=== PATIENT | male | born 1960 | race Caucasian/White ===

== ENCOUNTER 2017-04-10 20:13 | Observation (INO) ==
[2017-04-10] MEDS ORDERED: NITROGLYCERIN 2% OINT 1 INCH/GM PACK TOP STA (20:31)
[2017-04-10] MEDS ORDERED: METOPROLOL TARTRATE 25 MG TABLET PO STA (20:31)
[2017-04-10] MEDS ORDERED: MORPHINE 2 MG/1 ML SYRINGE IV STA (20:31)
[2017-04-10] MEDS ORDERED: ALUM/MAG/SIMETH/LIDO VISC 1:1 30 ML BOTTLE PO STA (20:31)
[2017-04-10] MEDS ORDERED: ASPIRIN 325 MG TABLET PO STA (20:31)
[2017-04-10] MEDS ORDERED: ONDANSETRON 4 MG/2 ML VIAL IV STA (20:31)
[2017-04-10] MEDS ORDERED: SODIUM CHLORIDE 0.9% 500 ML IV STA (20:31)
--- NOTE | 2017-04-10 20:33 | Emergency Department Note ---
Sara Alas Emily, am scribing for, and in the presence of, Stephan Juarez MD 20: 28. Larry Alas Charles R, MD, personally performed the services described in this documentation, ascribed by Kendra Ruiz in my presence, and it is both accurate and complete . Arrival - Arrival Chief Complaint: Chest Pain Stated Complaint: C/O CHEST PAIN WITH SOB WITH ONSET OVER WEEK AGO Mode of Arrival: Stretcher Limitations: No Limitations Source: Patient, EMS - History of Present Illness HPI Narrative: Pt is a 57 y/o male who came to ED by EMS for c/o chest pain and SOB that has been ongoing in waves for a week now. Pt is originally from [place] and was driving through last week when he stopped at [place], [place], for the same sxs. Pt states he is currently driving back through on his way back to [place] to go home with chest pains. 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 Pt is a smoker daily and occasional marijuana. Pt has sunburn on bilateral arms from biceps to fingertips. Onset (ago): week(s) Consistency: intermittent Severity: moderate Severity scale (1-10): 5 Quality: aching Allergies/Adverse Reactions: Allergies Allergy/AdvReac Type Severity Reaction Status Date / Time codeine Allergy Unknown/Unable Verified 04/10/17 20:14 to obtain tramadol [From Ultram] Allergy Unknown/Unable Verified 04/10/17 20:14 to obtain Review of System - Review of System 12 point system: reviewed and no additional remarkable complaints except as stated - Review of System Constitutional: Absent: chills, fever Respiratory: Present: respiratory distress. Absent: cough Cardiovascular: Present: chest pain (intermittent) Gastrointestinal: Absent: abdominal pain, nausea, vomiting Genitourinary male: Absent: dysuria Musculoskeletal: Absent: back pain, leg pain Skin: Absent: rash Neurological: Absent: headache Medical,Surgical,& Family Hx - Social History Functional capacity: independent ambulation Exam Vital Signs: Vital Signs Temperature 98.2 F 04/10/17 20:14 Pulse Rate 72 04/10/17 20:14 Respiratory Rate 16 04/10/17 20:14 Blood Pressure 102/77 04/10/17 20:14 O2 Sat by Pulse Oximetry 98 04/10/17 20:37 - General General appearance: alert, in distress (secondary due to pain) - Head Head exam: Present: atraumatic, normocephalic - Eye Eye exam: Present: PERRL, EOMI - Neck Neck exam: Present: full ROM. Absent: tenderness - Chest Chest inspection: Present: symmetric chest wall rise, other (ortega on chest shows evidence of previous hospitalization). Absent: rash - Respiratory Respiratory exam: Present: normal lung sounds bilaterally. Absent: respiratory distress - Cardiovascular Cardiovascular exam: Present: tachycardia, normal heart sounds - Abdominal Exam Abdominal exam: Present: soft, other (ortega consistent with evidence of previous hospital stay). Absent: tenderness - Extremities Exam Extremities exam: Present: full ROM, pedal edema (+1). Absent: tenderness - Neurological Exam Neurological exam: Present: alert, oriented X3, CN II-XII intact. Absent: motor sensory deficit - Psychiatric Psychiatric exam: Present: normal affect, normal mood - Skin Skin exam: Present: warm, dry Course - Consultations Consultation #1: Hospitalist will admit patient Time: 22:41 Results - Labs CBC & BMP: 04/10/17 20:32 04/10/17 20:32 Lab Results: I have reviewed the patients labs Labs: Laboratory Tests 04/10/17 20:32 WBC 7.1 RBC 4.24 Hgb 12.5 L Hct 36.4 L MCV 85.8 L Plt Count 251 [place] % (Auto) 13.3 H [place] # (Auto) 0.9 H Laboratory Tests 04/10/17 04/10/17 04/10/17 20:20 20:20 20:32 Sodium 146 H Chloride 112 H Total Protein 6.2 L Urine Color Yellow Urine Appearance Clear Urine pH 6.0 Ur Specific [place] 1.014 Urine Blood Negative Urine Urobilinogen < 2.0 H Urine RBC 1 Urine WBC 1 Calcium Oxalate Crystal Occasional Urine Mucus Occasional U Cannabinoids Screen Positive H Laboratory Tests 04/10/17 20:32 B-Natriuretic Peptide 4 - Diagnostic Findings Procedure: Chest x-ray: report reviewed by me (No acute cardiopulmonary process. ) Disposition Clinical Impression: Chest pain Case discussed with: patient Disposition: Still a Patient Condition: Stable Time of Disposition: 22:41
[2017-04-10] MEDS ORDERED: ASPIRIN 325 MG TABLET ONE (20:34)
[2017-04-10 20:39] LABS: Basophils % 0.3 % (0.0-0.8); Eosinophils # 0.1 10*3/uL (0.0-0.87); Eosinophils % 0.8 % (0.00-10.9); Hematocrit 36.4 VOL% (42.0-52.0); Hemoglobin 12.5 GM/DL (14.0-18.0); Immature Granulocytes % 0.4 %; Immature Granulocytes Absolute 0.03 #; Lymphocytes # 2.1 10*3/uL (1.4-4.0); Lymphocytes % 29.8 % (21.2-54.2); Mean Corpuscular HGB Conc 34.3 GM/DL (32-36); Mean Corpuscular Hemoglobin 30 PG (27-34); Mean Corpuscular Volume 85.8 FL (87-102); Mean Platelet Volume 10.1 FL (9.6-12.0); Monocytes # 0.9 10*3/uL (0.11-0.8); Monocytes % 13.3 % (1.7-12.7); Neutrophils # 3.9 10*3/uL (1.4-7.4); Neutrophils % 55.4 % (38.7-73.9); Platelet Count 251 T/CUMM (130-400); Red Blood Count 4.24 MC/CUMM (3.8-5.5); Red Cell Distribution Width 14.5 % (9.3-17.3); White Blood Count 7.1 T/CUMM (4-12)
[2017-04-10] MEDS ORDERED: NITROGLYCERIN 2% OINT 1 INCH/GM PACK TOP ONE (20:44)
[2017-04-10 20:45] LABS: Apearance,Urine CLEAR (Clear); Bilirubin,Urine Negative (Negative); Blood, Urine Negative (Negative); Calcium Oxalate Crystals,Urine Occasional /HPF (Few); Glucose,Urine (UA) Negative (Negative); Ketones,Urine Negative (Negative); Mucus,Urine Occasional /LPF (Occasional); Nitrite,Urine Negative (Negative); Protein,Urine Negative; RBC,Urine 1 /HPF (0-4); Urine Color Yellow (Yellow); Urine Specific Gravity 1.014 (1.001-1.035); Urine Urobilinogen < 2.0 EU/DL (0.2-1.0); WBC,Urine 1 /HPF (0-6)
[2017-04-10] MEDS ORDERED: METOPROLOL TARTRATE 25 MG TABLET ONE (20:45)
[2017-04-10] MEDS ORDERED: MORPHINE 2 MG/1 ML SYRINGE ONE (20:45)
[2017-04-10] MEDS ORDERED: ONDANSETRON 4 MG/2 ML VIAL ONE (20:45)
[2017-04-10] MEDS ORDERED: ALUM/MAG/SIMETH/LIDO VISC 1:1 30 ML BOTTLE PO ONE (20:46)
[2017-04-10 20:51] LABS: Barbiturates Screen,Urine Negative (Negative); Benzodiazepines Screen,Urine Negative (Negative); Cannabinoid Screen,Urine Positive (Negative); Opiate Screen,Urine Negative (Negative); Phencyclidine Screen,Urine Negative (Negative)
[2017-04-10 20:53] LABS: D-Dimer <= 0.5 MG/L FEU; PT Patient Result 10.7 SECS
[2017-04-10 20:55] LABS: Alanine Aminotransferase 21 U/L (16-61); Albumin 3.5 G/DL (3.4-5.0); Alkaline Phosphatase 86 U/L (45-117); Aspartate Amino Transferase 12 U/L (0-37); Blood Urea Nitrogen 12 MG/DL (7-18); Calcium 8.9 MG/DL (8.5-10.1); Glucose 79 MG/DL (74-106); Osmolality,Calculated 288.6 MOS/KG (273-304); Potassium 3.9 MMOL/L (3.5-5.1); Sodium 146 MMOL/L (136-145); Total Protein 6.2 G/DL (6.4-8.3); Troponin I Only < 0.015 NG/ML (0.00-0.045)
[2017-04-10] MEDS: ASPIRIN CHEW 81 MG TABLET PO STA ×2 (20:59→21:03)
--- NOTE | 2017-04-10 21:09 | XRay Report ---
History: Chest pain Date: 04/10/2017 Study: Chest x-ray PA and lateral Comparison exam: No previous The cardiac silhouette is not enlarged. There is no mediastinal mass. The pulmonary vasculature is not engorged. There are some occasional scattered emphysematous changes. There is no acute pulmonary infiltrate. There is no pleural effusion. There is minimal thoracic spondylosis. There is an old healed midshaft fracture of the left clavicle. Impression: No acute cardiopulmonary process. PROCEDURE INTERPRETED AT [facility] DEPARTMENT OF RADIOLOGY Final Report Signed by: Dr. Jenelle Pedraza
[2017-04-11] MEDS ORDERED: ONDANSETRON 4 MG/2 ML VIAL IV PRN (00:10)
--- NOTE | 2017-04-11 00:26 | Hospitalist History & Physical ---
Assessment and Plan (1) History of coronary artery disease Status: Acute Current Visit: Yes (2) Hypertension Status: Acute Current Visit: Yes (3) Chest pain Status: Acute Assessment and plan: Plan for this patient. We will admit patient to our service. Patient will be placed on telemetry. Will consult cardiology draw serial cardiac enzymes. Continue home meds as appropriate. Current Visit: Yes History of Present Illness Chief complaint: Chest pain History of present illness: Mr. Mackey is a 57 year old male with past medical history of coronary artery disease, hypertension,and Sharp's esophagus who reports symptoms for 1 week. Patient reports that he has been developing this shortness of breath. He also talks about this chest discomfort. He says it feels like a vice in his chest. Radiates to his neck and started radiating down his arm. Has some diaphoresis at times. He reports that he has known coronary artery disease and that he needs some kind of heart surgery can be done in [place]. He is from [place] and is trying to make his way back [place]. I was consulted to admit him through the emergency room Home Medications Medication Instructions Recorded Confirmed Type Amlodipine Besylate 5 mg PO DAILY 04/10/17 04/10/17 History Diltiazem Tab [Cardizem Tab] 60 mg PO DAILY 04/10/17 04/10/17 History FLUoxetine [PROzac] 20 mg PO BID 04/10/17 04/10/17 History Gabapentin Cap/Tab [Neurontin 100 mg PO DAILY 04/10/17 04/10/17 History Cap/Tab] HydrOXYzine PAMOATE CAP [Vistaril 50 mg PO BID 04/10/17 04/10/17 History Cap] Meclizine [Antivert] 25 mg PO DAILY 04/10/17 04/10/17 History Omeprazole 20 mg PO DAILY 04/10/17 04/10/17 History Pantoprazole Tab [Protonix Tab] 40 mg PO DAILY 04/10/17 04/10/17 History Pravastatin [Pravachol] 40 mg PO DAILY 04/10/17 04/10/17 History busPIRone [Buspar] 10 mg PO DIRECTED 04/10/17 04/10/17 History Allergies Allergy/AdvReac Type Severity Reaction Status Date / Time codeine Allergy Unknown/Unable Verified 04/10/17 20:14 to obtain tramadol [From Ultram] Allergy Unknown/Unable Verified 04/10/17 20:14 to obtain Medical,Surgical,& Family Hx - Medical History Cardio: History of: Hypertension, [place] Psychological: History of: Psychiatric Problems (PTSD) Neurology: History of: Cerebrovascular Accident Endocrine: History of: Dyslipidemia Other: History of: Cancer (BRAIN) - Family History Family History: Reports;: Family Diabetes, Family Heart Disease, Family Hypertension - Social History Smoking Status: Current every day smoker Frequency of Alcohol Use: None Type of Drug Use: Marijuana 12 point system: reviewed and no additional remarkable complaints except as stated Exam - Constitutional Vitals: Period Temp Pulse Resp BP Sys/[place]rera Pulse Ox Last 24 Hr 97.8 F-98.2 F 66-72 16-18 102-102/77-77 98-98 - General General appearance: alert, in no distress - Head Head exam: Present: atraumatic, normocephalic - Eye Eye exam: Present: PERRL, EOMI - Neck Neck exam: Present: full ROM. - Chest Chest inspection: Present: symmetric chest wall rise, grossly clear - Respiratory Respiratory exam: Present: normal lung sounds bilaterally - Cardiovascular Cardiovascular exam: Present: Regular rhythm regular rate currently - Abdominal Exam Abdominal exam: Present: soft, positive bowel sounds - Extremities Exam Extremities exam: Present: full ROM, pedal edema (+1) - Neurological Exam Neurological exam: Present: alert, oriented X3, CN II-XII intact. - Psychiatric Psychiatric exam: Present: normal affect, normal mood - Skin Skin exam: Present: warm, dry Results - Labs CBC & BMP: 04/10/17 20:32 04/10/17 20:32
[2017-04-11 01:09] LABS: Risk Ratio 3.06; VLDL CHOLESTEROL 12.2 MG/DL
[2017-04-11] MEDS: ENOXAPARIN 40 MG/0.4 ML SYRINGE SUBCUT SCH ×2 (02:43→21:11)
--- NOTE | 2017-04-11 06:21 | EKG Report ---
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
--- NOTE | 2017-04-11 06:22 | EKG Report ---
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
[2017-04-11] MEDS: NITROGLYCERIN 2% OINT 1 INCH/GM PACK TOP SCH ×3 (06:43→17:47)
[2017-04-11] MEDS: MECLIZINE 25 MG TABLET PO SCH (09:04)
[2017-04-11] MEDS: FLUoxetine 20 MG CAPSULE PO SCH ×2 (09:04→21:12)
[2017-04-11] MEDS: GABAPENTIN 100 MG CAPSULE PO SCH (09:04)
[2017-04-11] MEDS: HydrOXYzine PAMOATE 50 MG CAPSULE PO SCH ×2 (09:04→21:12)
[2017-04-11] MEDS: PRAVASTATIN 40 MG TABLET PO SCH (09:04)
[2017-04-11] MEDS: PANTOPRAZOLE 40 MG TABLET PO SCH (09:04)
[2017-04-11] MEDS: ASPIRIN EC 325 MG TABLET PO SCH (09:04)
[2017-04-11] MEDS: amLODIPine 5 MG TABLET PO SCH (09:06)
[2017-04-11] MEDS: DILTIAZEM 60 MG TABLET PO SCH (09:06)
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
[2017-04-11] MEDS: METOPROLOL TARTRATE 25 MG TABLET PO SCH ×2 (12:28→21:13)
[2017-04-11] MEDS: MORPHINE 2 MG/1 ML SYRINGE IV PRN ×3 (12:56→21:15)
--- NOTE | 2017-04-11 15:00 | Hospitalist Progress Note ---
Assessment and Plan (1) Chest pain Problem details: H/O CAD; acute PR ruled out. Status: Acute Current Visit: Yes (2) Essential (primary) hypertension Status: Acute Current Visit: Yes (3) Dyslipidemia Problem details: Total cholesterol 147, HDL 48, LDL 89, triglycerides 61 drawn this a.m. Status: Acute Current Visit: Yes (4) Tobacco abuse Problem details: counseled and encouraged to D/C tobacco use Status: Acute Current Visit: Yes (5) Polysubstance abuse Status: Acute Current Visit: Yes (6) PTSD (post-traumatic stress disorder) Status: Acute Current Visit: Yes (7) Barretts esophagus Status: Acute Current Visit: Yes (8) Stroke Status: Acute Current Visit: Yes (9) History of stroke Problem details: Two previous strokes without residual motor deficits. Status: Acute Current Visit: Yes (10) Allergy Problem details: allergy to shellfish and iodine (causes rash). Status: Acute Current Visit: Yes Hospitalist: Subjective Interval history: Patient is alert and fully oriented. He communicates well verbally. He reports a long history of complex heart disease. He states that surgical repair has been recommended. He is attempting to maneuver such that his medical insurance covers the expense of such a procedure. Exam - Constitutional Vitals: Period Temp Pulse Resp BP Sys/Cabrera Pulse Ox Last 24 Hr 97.8 F-98.4 F 47-72 16-20 102-122/54-77 98-98 General appearance: normal weight - Head Head exam: Present: normal inspection - Eye Eye exam: Present: EOMI Pupils: Present: ORTIZ - ENT ENT exam: Present: normal exam - Neck Neck exam: Present: normal inspection. Absent: meningismus, tenderness - Respiratory Respiratory exam: Present: clear to auscultation bilaterally. Absent: accessory muscle use, chest wall tenderness, rales, wheezes - Cardiovascular Cardiovascular exam: Present: regular rate and rhythm - GI/Abdominal GI/Abdominal exam: Present: normal bowel sounds, soft. Absent: mass, tenderness , rebound - Extremities Exam Extremities exam: Present: normal inspection, full ROM. Absent: calf tenderness , edema - Back Exam Back exam: Present: normal inspection - Neurological Exam Neurological exam: Present: alert, oriented X3 - Psychiatric Psychiatric exam: Present: normal affect, normal mood - Skin Skin exam: Present: normal color, warm, dry. Absent: rash Results - Labs CBC & BMP: 04/10/17 20:32 04/10/17 20:32 - Diagnostic Findings Procedure: Ultrasound: report reviewed by me, other (Echo - pending)
--- NOTE | 2017-04-11 19:01 | ECHO Report ---
Evangelista Mackey Exam Date: 04/11/2017 13:59 Referring Physician: Technologist: floresita Lyman ARDMS, RVT Age: 57 Ht (in): 68 Wt (lb): 143 Gender: M Exam Location: [facility] Echo Indications: Chest pain, unspecified, Old myocardial Infarction, Essential (primary) hypertension, CAD, Brain cancer, CVA, Dyslipidemia BP: 108 / 54 HR: 49 Rhythm: Sinus Technical Quality: IMPRESSIONS Normal left ventricular cavity size. Normal left ventricular wall thickness. Normal systolic function. Left ventricular ejection fraction is estimated at 60 %. Normal diastolic function. Mildly sclerotic aortic valve, with mild insufficiency, without stenosis. MEASUREMENTS (Male / Female) Normal Values 2D ECHO LV Diastolic Diameter PLAX 4.8 cm 4.2 - 5.9 / 3.9 - 5.3 cm LV Systolic Diameter PLAX 2.6 cm LV Fractional Shortening PLAX 46.0 % IVS Diastolic Thickness 0.7 cm 0.6 - 1.0 / 0.6 - 0.9 cm LVPW Diastolic Thickness 0.8 cm 0.6 - 1.0 / 0.6 - 0.9 cm RV Internal Dim ED PLAX 4.1 cm Aortic Root Diameter 3.1 cm LA Systolic Diameter LX 2.6 cm 3.0 - 4.0 / 2.7 - 3.8 cm DOPPLER TR Peak Velocity 257.0 cm/s TR Peak Gradient 26.4 mmHg FINDINGS Left Ventricle Normal left ventricular cavity size. Normal left ventricular wall thickness. Normal systolic function. Left ventricular ejection fraction is estimated at 60 %. Normal diastolic function. Right Ventricle The right ventricle is normal in size and function. Right Atrium The right atrium is normal in size. Left Atrium The left atrium is normal in size. Mitral Valve Morphologically normal mitral valve without significant stenosis or prolapse. There is no mitral regurgitation. Aortic Valve Mildly sclerotic aortic valve, with mild insufficiency, without stenosis. Tricuspid Valve Morphologically normal tricuspid valve. Mild tricuspid valve regurgitation. Tricuspid regurgitation velocities suggest a PAP of 36 mmHg. Pulmonic Valve Morphologically normal pulmonic valve without significant stenosis. There is no pulmonic regurgitation. Pericardium Normal pericardium without effusion. Aorta Normal ascending aorta dimension. Rupesh Rooney (Electronically Signed) Final Date: 11 April 2017 18:59
[2017-04-11] MEDS: CARBAMIDE PEROXIDE 6.5% OTIC SOLN 15 ML BOTTLE BOTH EARS SCH (21:12)
[2017-04-12] MEDS: MORPHINE 2 MG/1 ML SYRINGE IV PRN ×3 (01:17→12:00)
[2017-04-12 05:52] LABS: Basophils % 0.5 % (0.0-0.8); Eosinophils # 0.1 10*3/uL (0.0-0.87); Eosinophils % 2.5 % (0.00-10.9); Hemoglobin 11.6 GM/DL (14.0-18.0); Immature Granulocytes % 0.2 %; Immature Granulocytes Absolute 0.01 #; Lymphocytes # 2.3 10*3/uL (1.4-4.0); Lymphocytes % 41.6 % (21.2-54.2); Mean Corpuscular HGB Conc 33.1 GM/DL (32-36); Mean Corpuscular Hemoglobin 29 PG (27-34); Mean Corpuscular Volume 87.3 FL (87-102); Mean Platelet Volume 10.6 FL (9.6-12.0); Monocytes # 0.7 10*3/uL (0.11-0.8); Monocytes % 12.3 % (1.7-12.7); Neutrophils # 2.4 10*3/uL (1.4-7.4); Neutrophils % 42.9 % (38.7-73.9); Platelet Count 209 T/CUMM (130-400); Red Blood Count 4.01 MC/CUMM (3.8-5.5); Red Cell Distribution Width 14.1 % (9.3-17.3); White Blood Count 5.6 T/CUMM (4-12)
[2017-04-12] MEDS: NITROGLYCERIN 2% OINT 1 INCH/GM PACK TOP SCH ×3 (06:20→12:04)
[2017-04-12 06:23] LABS: Magnesium 1.9 MG/DL (1.8-2.4); Osmolality,Calculated 282.1 MOS/KG (273-304); Potassium 4.1 MMOL/L (3.5-5.1)
[2017-04-12] MEDS: PRAVASTATIN 40 MG TABLET PO SCH (09:21)
[2017-04-12] MEDS: ASPIRIN EC 325 MG TABLET PO SCH (09:21)
[2017-04-12] MEDS: PANTOPRAZOLE 40 MG TABLET PO SCH (09:21)
[2017-04-12] MEDS: GABAPENTIN 100 MG CAPSULE PO SCH (09:21)
[2017-04-12] MEDS: HydrOXYzine PAMOATE 50 MG CAPSULE PO SCH (09:22)
[2017-04-12] MEDS: FLUoxetine 20 MG CAPSULE PO SCH (09:22)
[2017-04-12] MEDS: amLODIPine 5 MG TABLET PO SCH (09:22)
[2017-04-12] MEDS: MECLIZINE 25 MG TABLET PO SCH (09:22)
[2017-04-12] MEDS: METOPROLOL TARTRATE 25 MG TABLET PO SCH (09:23)
[2017-04-12] MEDS: CARBAMIDE PEROXIDE 6.5% OTIC SOLN 15 ML BOTTLE BOTH EARS SCH (09:23)
[2017-04-12] MEDS: DILTIAZEM 60 MG TABLET PO SCH (09:23)
[2017-04-12 11:34] VITALS: BP 114/67
[2017-04-12] MEDS ORDERED: ASPIRIN EC 81 MG TABLET PO SCH (12:54)
--- NOTE | 2017-04-12 12:55 | Cardiology Progress Note ---
Assessment and Plan (1) Chest pain Status: Acute Assessment and plan: 57-year-old male, presenting with chest pain, suggestive of unstable angina. He saw multiple hospitals in multiple states recently, no prior records available. Per the patient, he has history of [place], EKG suggests anteroseptal, and some sort of experimental surgical correction was planned in [place], where he is traveling currently, actually hitchhiking. EKG was without significant ischemic changes and cardiac biomarkers were negative on admission. Blood pressure stable. He is currently, not symptomatic from angina and not having any CHF symptoms. He also has a history of CVAs, and C-spine surgery. Reviewed his medical records, from his prior multiple healthcare visits, which we were able to obtain. Cardiac stress test was negative for ischemia. He does have hiatal hernia on his x-rays. Echo was obtained during this hospital stay, normal systolic and diastolic function, aortic valve sclerosis, with mild insufficiency. There is no evidence of large VSD or ASD. Pulmonary pressure is normal. -I suspect he is using healthcare facilities as convenient stops, on his way hitchhiking to [place] (if that is true). He is also requesting morphine, as frequently as it was ordered prn. He seems quite comfortable. -There is no evidence of the prior myocardial infarctions, that he mentioned. The chest pain is likely noncardiac in origin. At this time, obstructive CAD is unlikely. Other etiologies, such as myocardial bridge, or coronary vasospasm cannot be ruled out for certain based on results available for review. He does not need more inpatient stay for cardiac monitoring at this time. -I could not make sense of the description of the heart surgery planned in [place], which he is talking about. He does not have significant valvular disease, or septal defects, which would require "heart muscle flap". CABG or similar intervention would usually not be indicated for myocardial bridging either. My suspicion for anomalous coronary origin/ischemia is low, given the benign results from prior the stress test. -Recommend to continue aspirin, statin, metoprolol and Cardizem. NTG prn. This may help, if he has any myocardial bridge, or vasospasm. Also discussed importance of abstinence from smoking. -The chest pain may be related to the hiatal hernia. Current Visit: Yes (2) History of CVA (cerebrovascular accident) Status: Chronic Current Visit: No (3) Tobacco use Status: Chronic Current Visit: Yes (4) Marijuana use Status: Chronic Current Visit: Yes (5) Dyslipidemia Problem details: Total cholesterol 147, HDL 48, LDL 89, triglycerides 61 drawn this a.m. Status: Acute Current Visit: Yes (6) Barretts esophagus Status: Acute Current Visit: Yes Cardiology - PN: Subj Interval history: He still had intermittent chest pain and does not feel well. Telemetry showed no significant arrhythmia, blood pressure heart rate well controlled. Cardiac biomarkers remain negative. Reviewed all obtain external records from her prior hospitalizations, cardiac workup. Exam (Progress Note) - Constitutional Vitals: Period Temp Pulse Resp BP Sys/Cabrera Pulse Ox Last 24 Hr 96.4 F-98.6 F 48-86 16-20 95-122/55-73 97-100 General appearance: normal weight, no acute distress - Head Head exam: Present: normal inspection, normocephalic - Eye Eye exam: Absent: conjunctival injection, scleral icterus Pupils: Absent: dilated - ENT ENT exam: Present: normal external ear exam - Neck Neck exam: Present: normal inspection - Respiratory Respiratory exam: Present: clear to auscultation bilaterally - Cardiovascular Cardiovascular exam: Present: diastolic murmur, regular rate and rhythm. Absent : JVD - GI/Abdominal GI/Abdominal exam: Present: normal bowel sounds - Extremities Exam Extremities exam: Present: normal inspection, normal capillary refill. Absent: edema - Back Exam Back exam: Present: normal inspection - Neurological Exam Neurological exam: Present: alert, oriented X3 - Psychiatric Psychiatric exam: Present: normal affect, normal mood - Skin Skin exam: Present: normal color, warm. Absent: cyanosis Result/EKG - Labs CBC & BMP: 04/12/17 05:09 04/12/17 05:09 Lab Results: I have reviewed the past 24 hour labs Labs: Laboratory Results - last 24 hr 04/12/17 04/12/17 05:09 05:09 WBC 5.6 RBC 4.01 Hgb 11.6 L Hct 35.0 L MCV 87.3 MCH 29 MCHC 33.1 RDW 14.1 Plt Count 209 MPV 10.6 Neut % (Auto) 42.9 Lymph % (Auto) 41.6 [place] % (Auto) 12.3 Eos % (Auto) 2.5 Baso % (Auto) 0.5 Neut # (Auto) 2.4 Lymph # (Auto) 2.3 [place] # (Auto) 0.7 Eos # (Auto) 0.1 Baso # (Auto) 0.0 Immature Gran % 0.2 Nucleated RBC % 0.0 Immature Gran # 0.01 Nucleated RBCs # 0.00 Sodium 142 Potassium 4.1 Chloride 109 H Carbon Dioxide 24 Anion Gap 13.1 BUN 17 Creatinine 0.80 GFR Calculation 102 BUN/Creatinine Ratio 21.00 H Glucose 70 L Calculated Osmolality 282.1 Calcium 8.0 L Magnesium 1.9 - EKG EKG results: interpreted by me
--- NOTE | 2017-04-12 14:00 | Discharge Summary ---
Hospital Course - Hospital Course Hospital Course: Patient is a 57-year-old male admitted for management and evaluation of chest pain. Acute myocardial infarction ruled out. Patient reported a fairly complex medical history involving evaluation and at least 4 different hospital systems over the preceding few months. Consulting human resources temp was able to review medical records from patient's previous hospitalizations and concluded that patient was low risk for acute coronary syndrome. Lexiscan stress test completed at [facility] 05/04/2016 interpreted negative for reversible ischemia. Patient is encouraged to discontinue cigarette smoking and avoid use of illegal recreational drugs. Patient prefers morphine as treatment for chest pain. He requests morphine intravenously as often as he is eligible to receive on a q. 3 hour prn schedule. There is some concern that patient's chest pain reports are in fact drug-seeking behavior. Diagnosis - Discharge Diagnosis (1) Chest pain Status: Acute (2) Essential (primary) hypertension Status: Acute (3) Dyslipidemia Status: Acute (4) Tobacco abuse Status: Acute (5) Polysubstance abuse Status: Acute (6) PTSD (post-traumatic stress disorder) Status: Acute (7) Barretts esophagus Status: Acute (8) Stroke Status: Acute (9) History of stroke Status: Acute (10) Allergy Status: Acute Discharge Plan - Discharge Data Condition at Discharge: Stable Discharge Diet: heart healthy, low fat, low cholesterol Activity: resume usual activities as tolerated Hygiene: no restrictions Weight Bearing at Discharge: full weight bearing - Discharge Medications New Diltiazem Cd Cap [Cardizem CD] 120 mg PO DAILY #30 capsule Metoprolol Tartrate Tab [Lopressor Tab] 25 mg PO BID #60 tablet Aspirin EC Tab 81 mg PO DAILY #30 tablet Continue Gabapentin Cap/Tab [Neurontin Cap/Tab] 100 mg PO DAILY #30 HydrOXYzine PAMOATE CAP [Vistaril Cap] 50 mg PO BID #50 Pravastatin [Pravachol] 40 mg PO DAILY #30 FLUoxetine [PROzac] 20 mg PO BID #60 Discontinued Meclizine [Antivert] 25 mg PO DAILY Amlodipine Besylate 5 mg PO DAILY Diltiazem Tab [Cardizem Tab] 60 mg PO DAILY Omeprazole 20 mg PO DAILY Pantoprazole Tab [Protonix Tab] 40 mg PO DAILY busPIRone [Buspar] 10 mg PO DIRECTED - Follow Up or Referral - Forms/Instructions Additional Discharge Instructions: Schedule follow-up with primary care provider next week. Exam - Constitutional Vitals: Period Temp Pulse Resp BP Sys/Cabrera Pulse Ox Last 24 Hr 96.4 F-98.6 F 48-86 16-20 95-122/55-73 97-100 General appearance: normal weight - Head Head exam: Present: normal inspection - Eye Eye exam: Present: EOMI Pupils: Present: ORTIZ - Neck Neck exam: Absent: meningismus - Respiratory Respiratory exam: Present: clear to auscultation bilaterally. Absent: rales, stridor, wheezes - Cardiovascular Cardiovascular exam: Present: regular rate and rhythm. Absent: carotid bruit - GI/Abdominal GI/Abdominal exam: Present: normal bowel sounds, soft - Extremities Exam Extremities exam: Absent: edema - Neurological Exam Neurological exam: Present: alert, oriented X3, abnormal gait. Absent: altered - Psychiatric Psychiatric exam: Present: normal affect, normal mood. Absent: agitated - Skin Skin exam: Present: normal color, warm, dry. Absent: rash Discharge Results Labs on day of discharge: Labs from last 24 hours 04/12/17 04/12/17 05:09 05:09 WBC 5.6 RBC 4.01 Hgb 11.6 L Hct 35.0 L MCV 87.3 MCH 29 MCHC 33.1 RDW 14.1 Plt Count 209 MPV 10.6 Neut % (Auto) 42.9 Lymph % (Auto) 41.6 [place] % (Auto) 12.3 Eos % (Auto) 2.5 Baso % (Auto) 0.5 Neut # (Auto) 2.4 Lymph # (Auto) 2.3 [place] # (Auto) 0.7 Eos # (Auto) 0.1 Baso # (Auto) 0.0 Immature Gran % 0.2 Nucleated RBC % 0.0 Immature Gran # 0.01 Nucleated RBCs # 0.00 Sodium 142 Potassium 4.1 Chloride 109 H Carbon Dioxide 24 Anion Gap 13.1 BUN 17 Creatinine 0.80 GFR Calculation 102 BUN/Creatinine Ratio 21.00 H Glucose 70 L Calculated Osmolality 282.1 Calcium 8.0 L Magnesium 1.9 - Imaging and Cardiology Procedure: Ultrasound: other (Echocardiogram 04/11/2017 documents LVEF 60% with normal wall motion and normal diastolic function.) DS: Provider Date of admission: 04/10/17 22:51 Primary care physician: . No PCP Attending physician on admission: Nabeel Carter MD Consults: 04/11/17 00:14 Consult to Physician [CONS] Routine Comment: Consulting Provider: Cardiology - [facility] Consult to Specialist Group: Cardiology When should Consulting Provider be notified: In am Person Notified: Akin Date Notified: 04/11/17 Time Notified: 07:45 04/11/17 10:48 Consult to Physical Therapy [CONS] Routine Reason for Physical Therapy: Evaluate and Treat Consult Comment: PT REQUESTING CANE Discharging clinician: Antonio Ventura III Expected date of discharge: 04/12/17
[2017-04-13] MEDS ORDERED: DILTIAZEM CD 120 MG CAPSULE PO SCH (09:00)
== END 2017-04-12 14:18 | disposition home or self-care (01) ==
LOC: N.EDINP 20:13 → N.ED 20:13 → SUATTDRO 22:51 → N.TELEN 23:18
PROVIDERS: ADMIT Internal Medicine; ATTEND Internal Medicine